=== PATIENT | female | born 1985 | race Caucasian/White ===

== ENCOUNTER 2019-08-15 08:42 | Emergency (ER) | payer OTHER, SELFPAY ==
[2019-08-15 08:56] VITALS: BP 152/94; PULSE 111; RESP 16; TEMP 38.6; O2SAT 98
--- NOTE | 2019-08-15 09:03 | ED.URI ---
HPI - URI/Sore Throat General Chief Complaint: Upper Respiratory Infection Stated Complaint: Body Aches/Cough/Mucus Time Seen by Provider: 08/15/19 09:07 Source: patient and RN notes reviewed Mode of arrival: ambulatory Limitations: no limitations History of Present Illness HPI Narrative: 34-year-old female presents with concern for body aches, chest congestion, fever, nausea that started Wednesday night. Reports taking alternating Tylenol and Motrin with no relief of symptoms. MD elicited complaint: sore throat Related Data Home Medications Medication Instructions Recorded Confirmed fluoxetine 20 mg BID 08/15/19 08/15/19 norethindrone-e.estradiol-iron 1.5 tablet PO DAILY 08/15/19 08/15/19 [Blisovi Fe 1.5/30 (28)] omeprazole 40 PO DAILY 08/15/19 Allergies Allergy/AdvReac Type Severity Reaction Status Date / Time codeine Allergy Mild Nausea and Verified 09/27/18 08:19 Vomiting guaifenesin Allergy Mild Swelling Verified 09/27/18 08:29 acetaminophen Allergy Unknown Unknown Verified 08/15/19 09:04 clarithromycin Allergy Unknown Unknown Verified 08/15/19 09:04 hydrocodone Allergy Unknown Unknown Verified 08/15/19 09:04 levofloxacin Allergy Unknown Unknown Verified 08/15/19 09:04 Review of Systems Review of Systems: Narrative: CONSTITUTIONAL: Reports malaise, chills, sweats, fever. ENT: Denies rhinorrhea, congestion, sinus pain, otalgia. Reports sore throat. CARDIOVASCULAR: Denies chest pain, palpitations, or edema. RESPIRATORY: Reports cough, chest congestion. Denies dyspnea. GASTROINTESTINAL: Denies abdominal pain,vomiting, diarrhea. Reports nausea SKIN: Denies rash or itching. MUSCULOSKELETAL: Reports myalgia. NEUROLOGIC: Denies headache. All systems reviewed & are unremarkable except as noted in HPI and below PMFSH Social History Social History Gender identity (if verbalized by the patient): Female Comments At time of signature, agree with nursing past medical, surgical, social and family history. There is no relevant family history pertinent to the presenting complaint Exam Narrative: Exam Narrative: GENERAL: Well-appearing, well-nourished, and in no acute distress. HEAD: Normocephalic EYES: PERRLA, conjunctivae clear ENT: Nares clear, turbinates erythematous, no discharge. Mucous membranes moist. TM pearly luevano with dull light reflex bilaterally; no tragal tenderness. Oropharynx mildly erythematous without lesions. Tonsils not enlarged and without exudate, no drooling, no hoarseness, no trismus. NECK: Supple. No lymphadenopathy CHEST: Clear to auscultation, breath sounds equal. No wheezing, rhonchi, rales, or stridor. No respiratory distress, speaks in full sentences. HEART: Regular rate and rhythm. No murmur heard. Normal peripheral pulses. SKIN: Warm, dry, no rash. NEURO: Alert and oriented x3. PSYCH: Normal mood and affect Course Course Emergency Course: Patient is aware of diagnosis, understands and agrees to treatment plan. Anticipatory guidance given. Patient agrees to follow-up as directed and is aware of reasons to seek care at the emergency department. Portions of this record may have been created with voice recognition software Vital Signs Vital signs: Vital Signs Temperature 101.4 F H 08/15/19 08:56 Pulse Rate 111 H 08/15/19 08:56 Respiratory Rate 16 08/15/19 08:56 Blood Pressure 152/94 H 08/15/19 08:56 Pulse Oximetry 98 08/15/19 08:56 Temperature 101.4 F H 08/15/19 08:56 Pulse Rate 111 H 08/15/19 08:56 Respiratory Rate 16 08/15/19 08:56 Blood Pressure 152/94 H 08/15/19 08:56 Pulse Oximetry 98 08/15/19 08:56 Reviewed. Patient has been instructed to follow up with her primary care provider within the next week regarding her elevated blood pressure today. MDM - URI/Sore Throat MDM Narrative Medical decision making narrative: Differential diagnosis considered: Strep pharyngitis, allergic rhinitis, upper respiratory tract infection, sinusitis, rhinosinusitis
== END 2019-08-15 09:23 | disposition home or self-care (01) ==
PROVIDERS: Emergency Provider Nurse Practitioner; PCP Nurse Practitioner Family
DX: B34.9 Viral infection, unspecified (principal); J45.909 Unspecified asthma, uncomplicated; K21.9 Gastro-esophageal reflux disease without esophagitis; F41.9 Anxiety disorder, unspecified; F32.9 Major depressive disorder, single episode, unspecified; F42.9 Obsessive-compulsive disorder, unspecified
CPT/HCPCS: 87804; 99213; G0463

== ENCOUNTER 2021-04-25 15:37 | Emergency (ER) | payer OTHER, SELFPAY ==
--- NOTE | ~2021-04-25 | XR_ITS ---
EXAMINATION: XR chest 2V DATE: 04/25/2021 17:50 INDICATION: Left-sided pain TECHNIQUE: PA and lateral views of the chest are obtained. COMPARISON: None available FINDINGS: The lungs are free of acute opacities. There is no pleural effusion or pneumothorax. The ca rdiomediastinal silhouette is normal. There is mild thoracic spondylosis. IMPRESSION: 1. No acute cardiopulmonary abnormality. Reviewed, dictated and finalized at location A.
--- NOTE | ~2021-04-25 | CT_ITS ---
EXAMINATION: CT cervical spine wo con DATE: 04/25/2021 17:42 INDICATION: Left neck pain TECHNIQUE: Computed tomography (CT) of the cervical spine was performed without intravenous contrast. The dose-length product (DLP) was 549.26 mGy-cm. Automated exposure control and iterative reconstruc tion technique were employed. COMPARISON: None FINDINGS: There is straightening of the cervical spine which can be positional or due to muscular spa sm. There is no fracture, dislocation, or subluxation. The vertebral body heights and intervertebral disc spaces are normal. The odontoid is intact. The prevertebral soft tissues are normal. IMPRESSION: 1. No acute osseous abnormality. Reviewed, dictated and finalized at location A.
[2021-04-25 16:02] VITALS: BP 156/107; PULSE 96; RESP 16; TEMP 36.8; O2SAT 94
[2021-04-25] MEDS: IBUPROFEN 600 MG TABLET PO (18:01)
[2021-04-25] MEDS: diazePAM (*CRX) 5 MG TABLET PO (18:07)
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
== END 2021-04-25 18:56 | disposition home or self-care (01) ==
PROVIDERS: Emergency Provider General Practice; PCP Nurse Practitioner Family
DX: S16.1XXA Strain of muscle, fascia and tendon at neck level, initial encounter (principal); S29.012A Strain of muscle and tendon of back wall of thorax, initial encounter; E11.9 Type 2 diabetes mellitus without complications; V49.40XA Driver injured in collision with unspecified motor vehicles in traffic accident, initial encounter
CPT/HCPCS: 71046; 72125; 99284; A9270

== ENCOUNTER 2021-07-08 10:24 | Outpatient (CLI) | payer OTHER, SELFPAY ==
--- NOTE | 2021-07-08 11:00 | NEURO_ITS ---
Impression: # Complains of right forearm discomfort. # No Carpal Tunnel Syndrome or ulnar neuropathy. # Normal needle/EMG exam. # Clinical correlation recommended. Nerve Conduction Studies Anti Sensory Summary Table Stim Site NR Peak (ms) P-T Amp (?V) Site1 Site2 Delta-P (ms) Dist (cm) Lauri (m/s) Right Median Anti Sensory (2-3nd Digit) Wrist 2.9 73.4 Wrist 2-3nd Digit 2.9 14.0 48 Wrist 3.0 64.2 Wrist 2-3nd Digit 2.9 14.0 48 Right Radial Anti Sensory (Base 1st Digit) Wrist 2.0 13.6 Wrist Base 1st Digit 2.0 0.0 Right Ulnar Anti Sensory (5th Digit) Wrist 2.4 35.0 Wrist 5th Digit 2.4 14.0 58 Motor Summary Table Stim Site NR Onset (ms) O-P Amp (mV) Site1 Site2 Delta-0 (ms) Dist (cm) Lauri (m/s) Right Median Motor (Abd Poll Brev) Wrist 3.0 4.4 Elbow Wrist 4.9 27.0 55 Elbow 7.9 2.7 Right Ulnar Motor (Abd Dig Minimi) Wrist 2.7 5.8 A Elbow Wrist 4.5 29.0 64 A Elbow 7.2 6.5 F Wave Studies NR F-Lat (ms) L-R F-Lat (ms) Right Median (Mrkrs) (Abd Poll Brev) 27.23 Right Ulnar (Mrkrs) (Abd Dig Min) 27.89 EMG Side Muscle Nerve Root Ins Act Fibs Amp Dur Recrt Comment Right 1stDorInt Ulnar C8-T1 Nml Nml Nml Nml Nml Right Ext Indicis Radial (Post Int) C7-8 Nml Nml Nml Nml Nml Right Ext Digitorum Radial (Post Int) C7-8 Nml Nml Nml Nml Nml Right BrachioRad Radial C5-6 Nml Nml Nml Nml Nml Right PronatorTeres Median C6-7 Nml Nml Nml Nml Nml Right Abd Poll Brev Median C8-T1 Nml Nml Nml Nml Nml MTDD
== END 2021-07-08 10:25 | disposition home or self-care (01) ==
PROVIDERS: Visit Provider Physician Assistant Surgical
DX: G56.01 Carpal tunnel syndrome, right upper limb (principal)
CPT/HCPCS: 95886; 95909

== ENCOUNTER 2021-12-02 11:20 | Emergency (ER) | payer OTHER, SELFPAY ==
[2021-12-02] VITALS (23 sets, daily range): BP systolic 133–161; BP diastolic 70–134; PULSE 84–103; RESP 12–24; TEMP 36.4; O2SAT 91–100
--- NOTE | ~2021-12-02 | XR_ITS ---
EXAMINATION: XR chest 2V 12/02/2021 12:29 INDICATION: New onset of shortness of breath PROCEDURE: 2 view chest COMPARISON: No prior studies for comparison. FINDINGS: The lungs are clear. The cardiomediastinal silhouette is within normal limits. There are no pleural effusions. There is no pneumothorax suspected. IMPRESSION: 1: NO ACUTE CARDIOPULMONARY DISEASE. Reviewed, dictated and finalized at location A.
--- NOTE | ~2021-12-02 | XR_ITS ---
EXAMINATION: XR ribs RT 2V INDICATION: Right lower chest pain TECHNIQUE: 3 views of the right ribs were obtained. COMPARISON: Chest radiographs from today FINDINGS: No displaced rib fracture is identified. The visualized portions of the lungs are free of a cute opacities. IMPRESSION: 1. No acute cardiopulmonary abnormality or evidence of displaced rib fracture. Reviewed, dictated and finalized at location F.
--- NOTE | 2021-12-02 11:52 | ECG_ITS ---
Measurements Intervals [place] Rate: 101 P: 31 MI: 143 QRS: 55 QRSD: 91 T: 22 QT: 360 QTc: 469 Interpretive Statements SINUS TACHYCARDIA BORDERLINE ECG Electronically Signed On 12-02-2021 14:32:52 CDT by Vikash Johnson D.O.
[2021-12-02 12:07] LABS: Basophils Percent Auto 0.4 % (0.2-1.2); Eosinophils Absolute Auto 0.5 K/mm3 (0-0.3); Eosinophils Percent Auto 4.4 % (0-4.4); Hemoglobin 13.9 g/dL (12.0-15.0); Immature Granulocyte Absolute 0.06 K/mm3 (0.00-0.031); Immature Granulocyte Percent A 0.6 % (0-0.5); Lymphocytes Absolute Auto 3.25 K/mm3 (0.9-3.2); Lymphocytes Percent Auto 30.7 % (18.3-44.2); Mean Corpuscular HGB Conc 33.1 g/dl (32-36); Mean Corpuscular Volume 90.5 fl (80-100); Monocytes Absolute Auto 0.5 K/mm3 (0.1-0.6); Monocytes Percent Auto 4.9 % (2.6-8.5); Neutrophils Absolute Auto 6.2 K/mm3 (1.3-6.7); Platelet Count Result 307 k/mm3 (150-375); Red Blood Count 4.64 M/mm3 (4.2-5.4); Red Cell Distribution Width 13.3 % (11.5-14.5); White Blood Count 10.6 K/mm3 (4.5-10.0)
[2021-12-02 12:20] LABS: Alanine Aminotransferase 25 U/L (6-35); Albumin Level 4.1 g/dL (3.5-5.1); Alkaline Phosphatase 78 U/L (38-126); Anion Gap 7 mmol/L (8-16); Aspartate Amino Transferase 25 U/L (14-36); Bilirubin,Total 0.3 mg/dL (0.2-1.3); Blood Urea Nitrogen 11 mg/dL (7-17); Calcium 8.4 mg/dL (8.4-10.2); Carbon Dioxide 23 mmol/L (22-30); Chloride 105 mmol/L (98-107); Estimated CRCL calculation 155 ml/min; Estimated Glomerular Filt Rate > 60; Glucose 144 mg/dL (65-110); Potassium 4.2 mmol/L (3.4-5.0); Sodium 135 mmol/L (137-145)
--- NOTE | 2021-12-02 13:08 | ED.SOB ---
HPI - SOB/Dyspnea General Chief Complaint: Shortness of Breath/Dyspnea Stated Complaint: right flank pain Time Seen by Provider: 12/02/21 13:08 Source: patient and RN notes reviewed Mode of arrival: ambulatory Limitations: no limitations History of Present Illness HPI Narrative: Patient is 36 years old white female, morbidly obese, presents with pain at the right mid and lower chest posteriorly after choking on watermelon 4 days ago. Patient reports got up in the middle of the night and to start eating watermelon, choked, vomited once associated with severe pain at the right mid and lower chest posteriorly. Patient has been coughing since. Patient denies any fever, chills, nausea, abdominal pain. Last menstrual period 2 weeks ago, patient is vaping, denies alcohol or drug use Related Data Allergies Allergy/AdvReac Type Severity Reaction Status Date / Time clarithromycin [From Biaxin] Allergy Swelling Verified 12/02/21 13:54 acetaminophen [From Vicodin] AdvReac Vomiting Verified 12/02/21 13:54 codeine AdvReac Vomiting Verified 12/02/21 13:54 hydrocodone [From Vicodin] AdvReac Vomiting Verified 12/02/21 13:54 levofloxacin [From Levaquin] AdvReac Vomiting Verified 12/02/21 13:54 Review of Systems Review of Systems: All systems reviewed & are unremarkable except as noted in HPI and below Exam Narrative: General appearance: Well-developed, well-nourished Skin: Normal color Head: Normocephalic, nontraumatic Eyes: Clear conjunctiva ENT: Oropharynx normal, ears normal, nose normal Neck: Supple, nontender Chest and respiratory: Airway patent, no respiratory distress, no accessory muscle use, taking deep breaths trigger coughing, severe tenderness right lower ribs posteriorly, no rash, no swelling or mass Heart: Regular rate/rhythm Abdomen: Soft, nontender, no organomegaly, quiet bowel sounds Vascular: Normal peripheral pulses, normal capillary refill. Musculoskeletal: Normal range of motion, nontender back Neurologic: Alert and oriented ?3, TABLE COVER FOLDER is normal as tested, no gross motor deficit Course Vital Signs Vital signs: Vital Signs Temperature 36.4 C L 12/02/21 11:48 Pulse Rate 103 H 12/02/21 11:48 Respiratory Rate 16 12/02/21 11:48 Blood Pressure 146/104 H 12/02/21 11:48 Pulse Oximetry 100 12/02/21 11:48 Oxygen Delivery Room Air 12/02/21 11:48 Temperature 36.4 C L 12/02/21 11:48 Pulse Rate 86 12/02/21 16:15 Respiratory Rate 17 12/02/21 16:15 Blood Pressure 133/92 H 12/02/21 15:31 Pulse Oximetry 96 12/02/21 16:15 Oxygen Delivery Room Air 12/02/21 11:48 MDM - SOB/Dyspnea Differential Diagnosis Differential diagnosis: Likely pulmonary embolism and other (Aspiration pneumonia, musculoskeletal pain, rib fracture) Lab Data Result diagrams: 12/02/21 11:59 12/02/21 11:59 Labs: Lab Results 12/02/21 12/02/21 12/02/21 Range/Units 11:59 11:59 13:47 WBC 10.6 H (4.5-10.0) K/mm3 RBC 4.64 (4.2-5.4) M/mm3 Hgb 13.9 (12.0-15.0) g/dL Hct 42.0 (37.0-47.0) % MCV 90.5 (80-100) fl MCH 30.0 (26-34) pg MCHC 33.1 (32-36) g/dl RDW 13.3 (11.5-14.5) % Plt Count 307 (150-375) k/mm3 MPV 9.0 (7.4-10.4) fl Immature Gran % (Auto) 0.6 H (0-0.5) % Neut % (Auto) 59.0 (45.5-73.1) % Lymph % (Auto) 30.7 (18.3-44.2) % Armstrong % (Auto) 4.9 (2.6-8.5) % Eos % (Auto) 4.4 (0-4.4) % Baso % (Auto) 0.4 (0.2-1.2) % Lymph # (Auto) 3.25 H (0.9-3.2) K/mm3 Armstrong # (Auto) 0.5 (0.1-0.6) K/mm3 Eos # (Auto) 0.5 H (0-0.3) K/mm3 Baso # (Auto) 0.0 (0.0-0.1) K/mm3 Abs Immat Gran (auto) 0.06 H (0.00-0.031) K/mm3 Absolute
[2021-12-02 13:43] LABS: Alveolar/Arterial O2 Gradient 35.9 mmHg; Base Excess ABG 0.8 mEq/l (+/-2.0); Fractional Inspired Oxygen 21 %; HCO3 ABG 22.3 mEq/l (22.0-26.0); Oxygen Content ABG 19.4 %vol (16.0-22.0); Oxygen Saturation ABG 97.1 % (95.0-100.0); Oxyhemoglobin 96.1 % THb (90.0-100.0); PCO2 ABG 27.5 mmHg (35.0-45.0); PO2 ABG 80.9 mmHg (80.0-100.0); PO2 FiO2 Ratio Arterial Blood 3.85 %; Total Hemoglobin 14.3 g/dL (12.0-18.0)
[2021-12-02 13:44] LABS: Device ROOM AIR; Modified Allen's Test Pass; Site Drawn RIGHT RADIAL; pH ABG 7.526 (7.350-7.450)
[2021-12-02] MEDS: KETOROLAC 30 MG/ML VIAL (*BKC) IV PUSH (13:51)
[2021-12-02 15:08] LABS: D Dimer 0.32 ug/mL (<0.48)
== END 2021-12-02 16:51 | disposition home or self-care (01) ==
PROVIDERS: Emergency Medicine; Emergency Provider Emergency Medicine; PCP Nurse Practitioner Family
DX: M54.9 Dorsalgia, unspecified (principal)
CPT/HCPCS: 36415; 36600; 71046; 71100; 80053; 82805; 85025; 85380; 93005; 96374; 99284; J1885

== ENCOUNTER 2024-09-13 13:06 | Outpatient (CLI) | payer OTHER, SELFPAY ==
--- NOTE | 2024-09-13 13:45 | NEURO_ITS ---
Impression: # Complains of left upper extremity pain and weakness. ? # Normal Nerve Conduction Study. ? # No Carpal Tunnel Syndrome or ulnar neuropathy. ? # Normal needle/EMG exam. ? # Clinical correlation recommended. ?Nerve Conduction Studies Anti Sensory Summary Table ?Stim Site NR Peak (ms) P-T Amp (?V) Site1 Site2 Delta-P (ms) Dist (cm) Lauri (m/s) Left Median Anti Sensory (2-3nd Digit) Wrist ? 2.4 90.0 Wrist 2-3nd Digit 2.4 14.0 58 Wrist ? 2.5 65.6 Wrist 2-3nd Digit 2.4 14.0 58 Left Radial Anti Sensory (Base 1st Digit) Wrist ? 1.7 59.2 Wrist Base 1st Digit 1.7 0.0 Left Ulnar Anti Sensory (5th Digit) Wrist ? 2.2 58.7 Wrist 5th Digit 2.2 14.0 64 Motor Summary Table ?Stim Site NR Onset (ms) O-P Amp (mV) Site1 Site2 Delta-0 (ms) Dist (cm) Lauri (m/s) Left Median Motor (Abd Poll Brev) Wrist ? 2.9 6.8 Elbow Wrist 4.6 28.0 61 Elbow ? 7.5 7.2 Left Ulnar Motor (Abd Dig Minimi) Wrist ? 2.7 7.1 A Elbow Wrist 4.8 28.0 58 A Elbow ? 7.5 5.5 F Wave Studies ?NR F-Lat (ms) L-R F-Lat (ms) Left Median (Mrkrs) (Abd Poll Brev) ? 27.56 Left Ulnar (Mrkrs) (Abd Dig Min) ? 28.81 EMG ?Side Muscle Nerve Root Ins Act Fibs Amp Dur Recrt Comment Left 1stDorInt Ulnar C8-T1 Nml Nml Nml Nml Nml Left Ext Indicis Radial (Post Int) C7-8 Nml Nml Nml Nml Nml Left Ext Digitorum Radial (Post Int) C7-8 Nml Nml Nml Nml Nml Left BrachioRad Radial C5-6 Nml Nml Nml Nml Nml Left PronatorTeres Median C6-7 Nml Nml Nml Nml Nml Left Abd Poll Brev Median C8-T1 Nml Nml Nml Nml Nml Left ABD Dig Min Ulnar C8-T1 Nml Nml Nml Nml Nml MTDD
--- OUTSIDE RECORDS SUMMARY | 2024-09-13 14:31 | XMS_ITS | Referral Summary ---
Author Organization 4 [facility] Address [address] [place] [id number] Care Team Providers Care Mid Level Practitioner Name Role Phone Maira Navarrete NP Primary Care Provider [phone] Allergies Active Allergy Reactions Criticality Noted Date Comments Aripiprazole Dizziness,Vomiting Low 05/12/2024 Atorvastatin Other (See comments) Low 05/12/2024 Body aches Buspirone Dizziness,Vomiting Low 05/12/2024 Clarithromycin Nausea And Vomiting 06/17/2017 Codeine Nausea And Vomiting Medium 10/08/2021 Duloxetine Dizziness,Vomiting Low 05/12/2024 Levofloxacin Nausea And Vomiting,Vomiting Low 06/17/2017 Lisinopril Rash Medium 05/12/2024 Naproxen Other (See comments) Low 05/12/2024 Bloody stool Sulfamethoxazole-Trimethop rim Rash Medium 10/20/2019 Bupropion Dizziness,Vomiting Low 05/12/2024 Medications azelastine (ASTELIN) 137 mcg (0.1 %) nasal spray USE 1 SPRAY(S) IN EACH NOSTRIL EVERY 12 HOURS 3 Active ergocalciferol (VITAMIN D) 50,000 unit capsule Take 1 capsule (50,000 Units total) by mouth once a week 2 Active ferrous sulfate 325 mg (65 mg of elemental iron) tablet Take 1 tablet (325 mg total) by mouth daily 2 Active FLUoxetine (PROzac) 40 mg capsule 3 Active FLUoxetine (PROzac) 20 mg capsule Take 3 capsules (60 mg total) by mouth daily 2 Active hydroCHLOROthia zide (HYDRODIURIL) 25 mg tablet Take 1 tablet (25 mg total) by mouth daily 2 Active metFORMIN XR (GLUCOPHAGE XR) 500 mg 24 hr tablet Take 1 tablet (500 mg total) by mouth 3 (three) times a day 2 Active montelukast (SINGULAIR) 10 mg tablet Take 1 tablet (10 mg total) by mouth daily 2 Active omeprazole (PriLOSEC) 40 mg capsule Take 1 capsule (40 mg total) by mouth daily 2 Active ondansetron (ZOFRAN) 4 mg tablet Take 1 tablet (4 mg total) by mouth every 8 (eight) hours as needed Active rosuvastatin (CRESTOR) 10 mg tablet Take 1 tablet (10 mg total) by mouth nightly Active traZODone (DESYREL) 100 mg tablet 3 Active albuterol 2.5 mg /3 mL (0.083 %) nebulizer solution USE 1 VIAL IN NEBULIZER THREE TIMES DAILY NEEDED Active albuterol HFA (PROVENTIL HFA,VENTOLIN HFA,PROAIR HFA) 90 mcg/actuation inhaler Inhale 2 puffs Activ e ALPRAZolam (XANAX) 0.5 mg tablet Take by mouth daily as needed Active cyclobenzaprine (FLEXERIL) 10 mg tablet 4 Active fluticasone propionate (FLONASE) 50 mcg/actuation nasal spray USE 2 SPRAY(S) IN EACH NOSTRIL ONCE DAILY Active hydrOXYzine (VISTARIL) 25 mg capsule TAKE 1 CAPSULE BY MOUTH THREE TIMES DAILY NEEDED 4 Active meclizine (ANTIVERT) 25 mg tablet Take 1 tablet 3 times a day by oral route as needed. Active Vlad Fe 1.5/30, 28, 1.5 mg-30 mcg (21)/75 mg (7) per tablet 4 Active valACYclovir (VALTREX) 1 gram tablet Take 1 PO TID x 7 days; extra pills for subsequent outbreaks Active losartan (COZAAR) 100 mg tablet TAKE 1/2 (ONE-HALF) TABLET BY MOUTH TWICE DAILY 4 Active gabapentin (NEURONTIN) 100 mg capsuleIndicati ons:Facial pain Take 1 capsule (100 mg total) by mouth 3 (three) times a day 90 capsule 3 4 Active Active Problems Problem Noted Date Diagnosed Date Ptosis of left eyelid 05/12/2024 Facial pain 05/12/2024 Iron deficiency 03/11/2023 Social History Tobacco Use Types Packs/Day Years Used Date Smoking Tobacco: Never Tobacco Cessation:Counseling Given: Not Answered Comments Unknown Sex and Gender Information Value Date Recorded Sex Assigned at Not on file Legal Sex Female 8:51 AM CDT Gender Identity Not on file Sexual Orientation Not on file Last Filed Vital Signs Vital Sign Reading Time Taken Comments Blood Pressure 134/88 05/12/2024 12:58 PM BOX LIDDER Pulse 110 05/12/2024 12:58 PM BOX LIDDER Temperature 36.6 C (97.9 F) 03/11/2023 2:54 PM CDT Respiratory Rate 20 03/11/2023 2:54 PM CDT Oxygen Saturation 97% 05/12/2024 12: 58 PM BOX LIDDER Inhaled Oxygen Concentration - - Weight 117.2 kg (258 lb 6.4 oz) 024 12:58 PM BOX LIDDER Height 167 cm (5' 5.75 ) 05/12/2024 12: 58 PM BOX LIDDER Body Mass Index 42.03 05/12/2024 12:58 PM BOX LIDDER Plan of Treatment Not on file Insurance [facility] Care Teams Mid Level Practitioner Relationship Specialty Start Date End Date Maira Navarrete NP PCP - General Nurse Practitioner 01/19/23
--- OUTSIDE RECORDS SUMMARY | 2024-09-13 14:31 | XMS_ITS | Clinical Summary ---
Author Organization 4 [facility] Address [address] [place] [id number] Care Team Providers Care Energy Specialist Name Role Phone Maira Navarrete NP Primary Care Provider [phone] Allergies Active Allergy Reactions Criticality Noted Date [...] 05/12/2024 Facial pain 05/12/2024 Iron deficiency 03/11/2023 Surgical History Surgery Date Site/Laterality Comments COLONOSCOPY Medical History Medical History Date Comments Diabetes mellitus (HCC) Social History Tobacco Use Types Packs/Day Years Used Date Smoking Tobacco: Never Tobacco Cessation:Counseling Given: Not Answered Comments Unknown Sex and Gender Information Value Date Recorded Sex Assigned at Not on file Legal Sex Female 8:51 AM CDT Gender Identity Not on file Sexual Orientation Not on file Obstetrics History Last Filed Vital Signs Vital Sign Reading Time Taken Comments Blood Pressure 134/88 05/12/2024 12:58 PM BUSINESS SYSTEMS CONSULTANT Pulse 110 05/12/2024 12:58 PM BUSINESS SYSTEMS CONSULTANT Temperature 36.6 C (97.9 F) 03/11/2023 2:54 PM CDT Respiratory Rate 20 03/11/2023 2:54 PM CDT Oxygen Saturation 97% 05/12/2024 12: 58 PM BUSINESS SYSTEMS CONSULTANT Inhaled Oxygen Concentration - - Weight 117.2 kg (258 lb 6.4 oz) 024 12:58 PM BUSINESS SYSTEMS CONSULTANT Height 167 cm (5' 5.75 ) 05/12/2024 12: 58 PM BUSINESS SYSTEMS CONSULTANT Body Mass Index 42.03 05/12/2024 12:58 PM BUSINESS SYSTEMS CONSULTANT Plan of Treatment Health Maintenance Due Date Last Done Comments Cervical Cancer Screening 1985 Depression Screening 1985 Hepatitis C Screening 1985 DTaP/Tdap/Td Vaccine (1 - Tdap) 02/12/1996 Varicella Vaccines (1 of 2 - 13+ 2-dose series) 1998 Hepatitis B Screening 2003 Regular Well Visit/Exam 18-64 2003 Pneumococcal vaccine <65 (1 of 2 - PCV) 02/12/2004 Covid-19 Vaccine (3 - 2023-2 5 season) 2024 04/12/2021, 03/15/2021 Influenza Vaccine (#1) 2024 HPV Vaccines Aged Out No longer eligi ble based on patient's age to complete this topic Insurance [facility] Care Teams Energy Specialist Relationship Specialty Start Date End Date Maira Navarrete NP PCP - General Nurse Practitioner 01/19/23
--- OUTSIDE RECORDS SUMMARY | 2024-09-13 14:31 | XMS_ITS | CONTINUITY OF CARE DOCUMENT ---
Author Name charissa carrington Address Unknown Organization [facility] Address [address] [address] [place] [address] Phone [phone] Care Team Providers Care Patient Services Technician Name Role Phone Emanuel Bellamy MD Unavailable [phone] Emanuel Bellamy MD Unavailable INSURANCE PROVIDERS Payer name Policy type / Coverage type Sarika red green party ID [place] [employer] Medicaid [id number]
--- OUTSIDE RECORDS SUMMARY | 2024-09-13 14:32 | XMS_ITS | Data Portability ---
Author Organization [place] [facility] [employer], Main Office Address [address] [place] [address] Care Team Providers Care Backshoe Person Name Role Phone SHAYY RANDOLPH Primary Care Provider HOPSHAYY HUSTON Referring Provider [phone] Assessment No assessment recorded. Plan of Treatment Reminders Order Date Submit Date Provider Last Modified By Organization Details Last Modified Time Details Appointments Follow Up 30 2024 02:00P Brea Hayes NP Not available Not available Not available Lab LIZETTE (antinucl ear antibodie s) screen, ifa, serum [address] (Lab), [address] [place], [address], 06/21/2024 16:11:28 rf (rheumato id factor), serum [address] (Lab), [address] [place], [address], 06/21/2024 16:12:03 ESR (erythroc yte sedimenta tion rate), blood [address] (Lab), [address] [place], [address], 06/21/2024 16:12:32 drug of abuse panel, urine 2023 024 [facility] (Lab), [address] [place], [address], 04/20/2024 20:05:38 CBC w/ auto diff 2023 024 [facility] (Lab), [address] [place], [address], 01/27/2024 20:54:54 CBC w/ auto diff 2023 024 [facility] (Lab), [address] [place], [address], 01/27/2024 18:59:34 glycohemo globin, total, blood 2023 024 [facility] (Lab), [address] [place], [address], 01/27/2024 20:06:12 CMP, serum or plasma 2023 024 [facility] (Lab), [address] [place], [address], 01/27/2024 18:59:36 microalbu min, urine 2023 024 [facility] (Lab), [address] [place], [address], 01/27/2024 19:06:44 lipid panel, serum 2023 024 [facility] (Lab), [address] [place], [address], 01/27/2024 18:59:39 Referral None recorded. Procedures None recorded. Surgeries None recorded. Imaging nerve conductio n study - Please call pt to schedule left upper EMG 2023 024 [facility] (Cardiology & Emg), [address], [address], 09/04/2024 08:59:05 XR, knee, 3 view - Please contact pt to schedule 2023 024 [email or web address] 56 [facility] (One Call Scheduling), [address] [place], [address], 05/22/2024 09:44:26 MRI, brain, w/wo contrast - Please call pt to schedule 2023 [facility] (One Call Scheduling), [address] [place], [address], 05/01/2024 14:10:25 MRI, head, w/wo contrast - Marcel says same test already approved. 2023 [email or web address] 56 [facility] (One Call Scheduling), [address] [place], [address], 04/26/2024 08:49:21 Medication Orders metformin 500 mg tablet 2023 [facility], [address] [place] [address], [address], 06/21/2024 16:01:57 rosuvasta tin 10 mg tablet 2023 024 [facility], [address] [place] [address], [address], 06/21/2024 16:01:58 alprazola m 0.5 mg tablet 2023 [facility], [address] [place] [address], [address], 06/21/2024 16:02:00 cyclobenz aprine 10 mg tablet 2023 024 [facility], [address] [place] [address], [address], 04/20/2024 15:58:09 gabapenti n 100 mg capsule 2023 024 [facility], [address] [place] [address], [address], 04/20/2024 15:58:09 Zithromax Z-Lucius 250 mg tablet 2023 [facility], [address] [place] [address], [address], 04/20/2024 15:58:06 fluoxetin e 40 mg capsule 2023 [facility], [address] [place] [address], [address], 04/20/2024 15:58:06 alprazola m 0.5 mg tablet [address] [facility], [address] [place] [address], [address], 04/20/2024 15:58:12 rosuvasta tin 10 mg tablet [address] [facility] [address], [address] [place] [address], [address], 04/20/2024 15:58:08 ondansetr on HCl 4 mg tablet [address] [facility] [address], [address] [place] [address], [address], 04/20/2024 15:58:08 Diflucan 150 mg tablet 2023 [facility], [address] [place] [address], [address], 04/20/2024 16:09:30 omeprazol e 40 mg capsule,d elayed release [address] [facility], [address] [place] [address], [address], 04/20/2024 15:58:06 amoxicill in 875 mg-potass ium clavulana te 125 mg tablet 2023 [email or web address] 77 [facility] 361, [address] [place] [address] [place], [address], 04/20/2024 14:59:43 fluticaso ne propionat e 50 mcg/actua tion nasal spray,raquel pension 2023 024 [email or web address] 77 [facility], [address] [place], [address], 04/20/2024 15:00:34 Patient TargetsNo targets recorded. Patient InstructionsNo instructions recorded. Reason for Referral None Reported. Results Created Date Observation Date Name Description Value Unit Range Abnormal Flag Note LastModifiedBy Organization Detail LastModifiedTime 01/27/2001/27/2024 CBC/C OMPLE TE BLD COUNT W/DIF F white blood cells 10.4 x10'3 /uL 4.2-10 .8 Not Available [facility] (Lab) [address] [place], [address], 01/27/2024 18:59:34 01/27/20 24 01/27/2024 CBC/C OMPLE TE BLD COUNT W/DIF F red blood cells 4.58 x10'6 /uL 3.80-5 .20 Not Available [facility] (Lab) [address] [place], [address], 01/27/2024 18:59:34 01/27/20 24 01/27/2024 CBC/C OMPLE TE BLD COUNT W/DIF F hemoglobin 13.5 g/dL 12.0-1 5.6 Not Available [facility] (Lab) [address] [place], [address], 01/27/2024 18:59:34 01/27/20 24 01/27/2024 CBC/C OMPLE TE BLD COUNT W/DIF F hematocrit 41.8 % 35.7-4 5.7 Not Available [facility] (Lab) [address] [place], [address], 01/27/2024 18:59:34 01/27/20 24 01/27/2024 CBC/C OMPLE TE BLD COUNT W/DIF F mean red cell volume 91.3 fL 82.0-9 9.0 Not Available [facility] (Lab) [address] [place], [address], 01/27/2024 18:59:34 01/27/20 24 01/27/2024 CBC/C OMPLE TE BLD COUNT W/DIF F mean red cell hemoglobin 29.5 pg 27.0-3 3.0 Not Available [facility] (Lab) [address] [place], [address], 01/27/2024 18:59:34 01/27/20 24 01/27/2024 CBC/C OMPLE TE BLD COUNT W/DIF F mean RBC HGB concentratio n 32.3 g/dL 31.0-3 6.0 Not Available [facility] (Lab) [address] [place], [address], 01/27/2024 18:59:34 01/27/20 24 01/27/2024 CBC/C OMPLE TE BLD COUNT W/DIF F red cell distribution width 13.1 % 11.8-1 5.5 Not Available [facility] (Lab) [address] [place], [address], 01/27/2024 18:59:34 01/27/20 24 01/27/2024 CBC/C OMPLE TE BLD COUNT W/DIF F platelets 347 x10'3 /uL 150-40 0 Not Available [facility] (Lab) [address] [place], [address], 01/27/2024 18:59:34 01/27/20 24 01/27/2024 CBC/C OMPLE TE BLD COUNT W/DIF F mean platelet volume 9.5 fL 9.0-12 .4 Not Available [facility] (Lab) [address] [place], [address], 01/27/2024 18:59:34 01/27/20 24 01/27/2024 CBC/C OMPLE TE BLD COUNT W/DIF F neutrophils 64.5 % 39.0-7 2.0 Not Available [facility] (Lab) [address] [place], [address], 01/27/2024 18:59:34 01/27/20 24 01/27/2024 CBC/C OMPLE TE BLD COUNT W/DIF F lymphocytes 26.1 % 16.0-4 7.0 Not Available [facility] (Lab) [address] [place], [address], 01/27/2024 18:59:34 01/27/20 24 01/27/2024 CBC/C OMPLE TE BLD COUNT W/DIF F monocytes 4.9 % 5.0-12 .0 low Not Available [facility] (Lab) [address] [place], [address], 01/27/2024 18:59:34 01/27/20 24 01/27/2024 CBC/C OMPLE TE BLD COUNT W/DIF F eosinophils 3.6 % 1.0-7. 0 Not Available [facility] (Lab) [address] [place], [address], 01/27/2024 18:59:34 01/27/20 24 01/27/2024 CBC/C OMPLE TE BLD COUNT W/DIF F basophils 0.5 % 0.0-2. 0 Not Available [facility] (Lab) [address] [place], [address], 01/27/2024 18:59:34 01/27/20 24 01/27/2024 CBC/C OMPLE TE BLD COUNT W/DIF F immature granulocytes 0.4 % 0.00-0 .50 Not Available [facility] (Lab) [address] [place], [address], 01/27/2024 18:59:34 01/27/20 24 01/27/2024 CBC/C OMPLE TE BLD COUNT W/DIF F neutrophils, absolute count 6.73 x10'3 /uL 1.5-8. 0 Not Available [facility] (Lab) [address] [place], [address], 01/27/2024 18:59:34 01/27/20 24 01/27/2024 CBC/C OMPLE TE BLD COUNT W/DIF F lymphocytes, absolute count 2.72 x10'3 /uL 1.07-3 .43 Not Available [facility] (Lab) [address] [place], [address], 01/27/2024 18:59:34 01/27/20 24 01/27/2024 CBC/C OMPLE TE BLD COUNT W/DIF F monocytes, absolute count 0.51 x10'3 /uL 0.29-0 .99 Not Available [facility] (Lab) [address] [place], [address], 01/27/2024 18:59:34 01/27/20 24 01/27/2024 CBC/C OMPLE TE BLD COUNT W/DIF F eosinophils, absolute count 0.37 x10'3 /uL 0.02-0 .53 Not Available [facility] (Lab) [address] [place], [address], 01/27/2024 18:59:34 01/27/20 24 01/27/2024 CBC/C OMPLE TE BLD COUNT W/DIF F basophils, absolute count 0.05 x10'3 /uL 0.01-0 .08 Not Available [facility] (Lab) [address] [place], [address], 01/27/2024 18:59:34 01/27/20 24 01/27/2024 CBC/C OMPLE TE BLD COUNT W/DIF F immature granulocytes ,absolute 0.04 x10'3 /uL 0.00-0 .05 Not Available [facility] (Lab) [address] [place], [address], 01/27/2024 18:59:34 01/27/20 24 01/27/2024 CBC/C OMPLE TE BLD COUNT W/DIF F nucleated red blood cells 0.0 % -0 Not Available [facility] (Lab) [address] [place], [address], 01/27/2024 18:59:34 01/27/20 24 01/27/2024 CBC/C OMPLE TE BLD COUNT W/DIF F NRBC# 0.00 x10'3 /uL Not Available [facility] (Lab) [address] [place], [address], 01/27/2024 18:59:34 01/27/20 24 01/27/2024 COMPR EHENS ENRRIQUE METAB OLIC PANEL sodium 136 mmol/ L 137-14 5 low Not Available [facility] (Lab) [address] [place], [address], 01/27/2024 18:59:36 01/27/20 24 01/27/2024 COMPR EHENS ENRRIQUE METAB OLIC PANEL potassium 3.9 mmol/ L 3.5-5. 1 Not Available [facility] (Lab) [address] [place], [address], 01/27/2024 18:59:36 01/27/20 24 01/27/2024 COMPR EHENS ENRRIQUE METAB OLIC PANEL chloride 106 mmol/ L 98-107 Not Available [facility] (Lab) [address] [place], [address], 01/27/2024 18:59:36 01/27/20 24 01/27/2024 COMPR EHENS ENRRIQUE METAB OLIC PANEL carbon dioxide 24 mmol/ L 22-30 Not Available [facility] (Lab) [address] [place], [address], 01/27/2024 18:59:36 01/27/20 24 01/27/2024 COMPR EHENS ENRRIQUE METAB OLIC PANEL anion gap 9.9 mmol/ L 14-22 low Not Available [facility] (Lab) [address] [place], [address], 01/27/2024 18:59:36 01/27/20 24 01/27/2024 COMPR EHENS ENRRIQUE METAB OLIC PANEL glucose 103 mg/dL 70-99 high Not Available [facility] (Lab) [address] [place], [address], 01/27/2024 18:59:36 01/27/20 24 01/27/2024 COMPR EHENS ENRRIQUE METAB OLIC PANEL BUN 9 mg/dL 8-19 Not Available [facility] (Lab) [address] [place], [address], 01/27/2024 18:59:36 01/27/20 24 01/27/2024 COMPR EHENS ENRRIQUE METAB OLIC PANEL creatinine 0.61 mg/dL 0.66-1 .25 low Not Available [facility] (Lab) [address] [place], [address], 01/27/2024 18:59:36 01/27/20 24 01/27/2024 COMPR EHENS ENRRIQUE METAB OLIC PANEL GFR >60 Refer ence Range : [place] [facility] GFR Healt hy Adult : >60 mL/mi n/1.7 3 m2 Chron ic Kidne y Disea se: 15-60 mL/mi n/1.7 3 m2 Kidne y Failu re: <15/m L/min /1.73 m2 www.n iddk. nih.g ov The MDRD study equat ion has not been valid ated in child john <18 years of age; pregn ant women ; the elder ly >85 years of age; or in some racia l or ethni c subgr oups, such as Hispa nics. Outsi de the valid ated charlotte eters , estim ated GFR is less accur ate, requi ring clini any judgm ent on a case- by-ca se basis . Clini any inter preta tion for other races and ages must be made by the clini gia. The MDRD study equat ion has not been valid ated for the evalu ation of serum creat inine relat ed to nutri kristine l statu s or medic ation usage . For perso ns <18 years of age, a pedia tric GFR calcu lator is avail able on the [facility] websi te: https ://ww w.kid aubrey.o rg/pr ofess ional s/kdo qi/gf r_cal culat or Not Available [facility] (Lab) [address] [place], [address], 01/27/2024 18:59:36 01/27/20 24 01/27/2024 COMPR EHENS ENRRIQUE METAB OLIC PANEL alkaline phosphatase 88 U/L 38-126 Not Available [facility] (Lab) [address] [place], [address], 01/27/2024 18:59:36 01/27/20 24 01/27/2024 COMPR EHENS ENRRIQUE METAB OLIC PANEL alanine aminotransfe rase 25 U/L 0-35 Not Available [facility] (Lab) [address] [place], [address], 01/27/2024 18:59:36 01/27/20 24 01/27/2024 COMPR EHENS ENRRIQUE METAB OLIC PANEL aspartate aminotransfe rase 31 U/L 15-37 Not Available [facility] (Lab) [address] [place], [address], 01/27/2024 18:59:36 01/27/20 24 01/27/2024 COMPR EHENS ENRRIQUE METAB OLIC PANEL bilirubin, total 0.50 mg/dL 0.20-1 .30 Not Available [facility] (Lab) [address] [place], [address], 01/27/2024 18:59:36 01/27/20 24 01/27/2024 COMPR EHENS ENRRIQUE METAB OLIC PANEL calcium 8.7 mg/dL 8.4-10 .2 Not Available [facility] (Lab) [address] [place], [address], 01/27/2024 18:59:36 01/27/20 24 01/27/2024 COMPR EHENS ENRRIQUE METAB OLIC PANEL total protein 7.5 g/dL 6.3-8. 2 Not Available [facility] (Lab) [address] [place], [address], 01/27/2024 18:59:36 01/27/20 24 01/27/2024 COMPR EHENS ENRRIQUE METAB OLIC PANEL albumin 4.5 g/dL 3.4-5. 0 Not Available [facility] (Lab) [address] [place], [address], 01/27/2024 18:59:36 01/27/20 24 01/27/2024 COMPR EHENS ENRRIQUE METAB OLIC PANEL globulin 3.0 g/dL 2.6-4. 2 Not Available [facility] (Lab) [address] [place], [address], 01/27/2024 18:59:36 01/27/20 24 01/27/2024 COMPR EHENS ENRRIQUE METAB OLIC PANEL A/G ratio 1.5 ratio 1.0-2. 0 Not Available [facility] (Lab) [address] [place], [address], 01/27/2024 18:59:36 01/27/20 24 01/27/2024 LIPID PANEL cholesterol 120 mg/dL 140-19 9 low NIH BETSY NSUS RECOM MENDA TION FOR REE STERO L: ADULT CHILD LOW RISK: <200 <170 BORDE RLINE : <200- 239 ----- HIGH RISK: >240 >200 Not Available [facility] (Lab) [address] [place], [address], 01/27/2024 18:59:39 01/27/20 24 01/27/2024 LIPID PANEL triglyceride s 133 mg/dL 0-150 NIH BETSY NSUS REPOR T RECOM MENDA TION FOR TRIGL YCERI RYAN: ADULT CHILD LOW RISK: <150 ----- BODER LINE: 150-1 99 ----- HIGH RISK: >200 ----- Not Available [facility] (Lab) [address] [place], [address], 01/27/2024 18:59:39 01/27/20 24 01/27/2024 LIPID PANEL HDL cholesterol 44 mg/dL 40- Not Available [facility] (Lab) [address] [place], [address], 01/27/2024 18:59:39 01/27/20 24 01/27/2024 LIPID PANEL LDL cholesterol, calculated 49 mg/dL 0-130 NIH BETSY NSUS REPOR T RECOM MENDA TIONS FOR LDL: ADULT CHILD LOW RISK <130 <110 (OPTI MAL LDL) <100 ----- BORDE RLINE : 130-1 59 ----- HIGH RISK: >160 >130 A TRIGL YCERI DE RESUL T >400 INVAL IDATE S THE CALCU LATIO N FOR LDL FRACT IONAT ION - THE LDL RESUL T WILL NOT BE REPOR GIA. Not Available [facility] (Lab) [address] [place], [address], 01/27/2024 18:59:39 01/27/20 24 01/27/2024 MICRO ALBUM IN RANDO M URINE microalbumin , urine <6.0 mg/L 0.0-16 .6 Not Available [facility] (Lab) [address] [place], [address], 01/27/2024 19:06:44 01/27/20 24 01/27/2024 HEMOG LOBIN A1C HA1C 6.6 % 4.0-6. 0 high Diabe germain Scree obed Crite bennett: <5.7% Consi stent with absen ce of diabe germain 5.7-6 .4% Consi stent with incre ased risk for diabe germain (pred iabet es) >OR=6 .5% Consi stent with diabe germain REFER ENCE: Diabe germain Care 2016, 39(Vera ppl.1 ):s13 -s22 Not Available [facility] (Lab) [address] [place], [address], 01/27/2024 20:06:12 05/01/20 24 04/27/2024 MRI, brain , w/wo contr ast No observ ation record ed. [email or web address] [facility] [address] [place], [address], 05/01/2024 14:14:28 Result Notes None recorded. Problems Name Problem SNOMED Code Status Onset Date Resolution Date Notes Provider Name and Address Organization Details Recorded Time Hyperlipi demia 16908814 Active 2022 Not Available [employer] 3 16:32:34 Iron deficienc y 44329894 Active 2022 Not Available [facility] 3 16:32:34 Obesity 558125858 Active 2022 Not Available [employer] 3 16:32:34 Nausea 083716111 Active 2022 Not Available [facility] 3 16:32:34 Anxiety 27290555 Active 2022 Not Available [facility] 3 16:32:34 Fatigue 29661793 Active 2022 Not Available [facility] 3 16:32:34 Multiple joint pain 01614696 Active 2022 Not Available [facility] 3 16:32:34 Diabetes mellitus 36380153 Active 2022 Not Available [facility] 3 16:32:34 Deviated nasal septum 443240392 Active 2022 Not Available [facility] 3 16:32:33 Allergic rhinitis 62998416 Active 2022 [facility] Available [facility] 3 16:32:34 Essential hypertens ion 48421437 Active 2022 Not Available [employer] 3 16:32:34 Hyperprot einemia 56620572 Active 2022 Not Available [facility] 3 16:32:34 Liver enzymes level above reference range 881504719 Active 2022 Not Available [facility] 3 16:32:34 Asthma 028625334 Active Not Available [facility] 3 16:32:34 Bronchiti s 35921959 Active 2017 Not Available [facility] 3 16:32:34 Vitamin D deficienc y 93404932 Active 2021 Not Available [facility] 3 16:32:34 Foot pain 51370566 Completed Not Available [facility] 3 03:16:54 Pain in wrist 16333169 Completed Not Available [facility] 3 03:16:54 Candidias is 90855917 Completed Not Available [facility] 3 03:16:54 Iron deficienc y anemia 86270683 Active 2021 Not Available [facility] 3 16:32:34 Benign essential hypertens ion 4827311 Active 2023 Jaxson Barrera MD [address], [place], [address] , [facility] [employer] [facility] 4 15:01:30 Anxiety state 702135844 Active 2023 Jaxson Barrera MD [address], [place], [address] , [employer] [facility] [employer] [facility] [facility] 4 15:01:31 Steatosis of liver 003278291 Active 2023 Jaxson Barrera MD [address], [place], [address] , [facility] [employer] [facility] 4 15:02:09 Seasonal allergy 949091386 Active 2023 Sharda Live LPN null, [place] [facility] 4 15:37:18 Acute bronchiti s 18484813 Active 2023 SAMMIE Palmer null, [place] [facility] 4 12:45:53 Type 2 diabetes mellitus without complicat ion 114114500 Active 2023 Sharda Live LPN null, [place] [facility] 4 14:16:08 Migraine 39746624 Active 2023 Sharda Live LPN null, [place] [facility] 4 15:41:14 Paronychi a of toe 536029424 Active 2023 Jaxson Barrera MD [address], [place], [address] , [facility] 4 16:40:50 Eye symptom 950959809 Active 2023 Jaxson Barrera MD [address], [place], [address] , [facility] 4 16:41:10 Candidias is of vagina 15864251 Active 2023 Courtney Ott MA null, [place] [facility] 4 11:20:02 COVID-19 777937793 Active 2023 SAMMIE Palmer null, [place] [facility] 4 17:14:29 Cough 74948079 Active 2023 Mallorie lance RMA null, [place] [facility] 4 17:17:13 Left hemipares is 966404436 Active 2023 DELFINO Alexis [address], [place], [address] , [facility] 4 15:14:02 Pain of left knee joint 95585446371 4107 Active 2023 DELFINO Alexis [address], [place], [address] , [employer] 4 15:15:34 Trigemina l neuralgia 71043435 Active 2023 DELFINO Alexis [address], [place], [address] , [employer] 4 15:22:23 Acute sinusitis 65180561 Active 2023 DELFINO Alexis [address], [place], [address] , [employer] 4 15:36:22 Gastroeso phageal reflux disease without esophagit is 110083833 Active 2023 DELFINO Alexis [address], [place], [address] , [employer] 4 23:35:55 Vertigo 829680769 Active 2023 DELFINO Alexis [address], [place], [address] , [employer] 4 09:51:19 Hyponatre july 87431570 Active 2023 DELFINO Alexis [address], [place], [address] , [employer] 4 16:06:28 Herpes zoster 6315857 Active 2023 DELFINO Alexis [address], [place], [address] , [employer] 4 09:48:54 Acute upper respirato ry infection 26671322 Active 2023 DELFINO Alexis [address], [place], [address] , [employer] 4 08:38:23 Problem Notes None recorded. Procedures Surgical History Date Name Laterality Status Provider Name and Address Organization Details Recorded Time 6 tooth extraction completed Not Available [facility] 09/02/2022 03:04:38 Imaging Results Imaging Date Name Status LastModified by Organiz ation Details LastModified Time 04/27/2024 MRI, brain, w/wo contrast completed [email or web address] [facility] [address], [place], [address], 05/01/2024 14:14:28 Procedure Notes None recorded. Medical Equipment None Reported. Allergies Allergen ID Allergen Name Allergen Category Reaction Reaction Severity Criticality Documentation Date Start Date Code Code System Note Provider Name and Address Organization Details Recorded Time 6098 acetamino phen / hydrocodo ne medicatio n Not available Not available Not available 09/02/2022 50927 2 RxNorm Not Available [facility] 3 03:33:22 6099 Levaquin medicatio n Not available Not available Not available 09/02/2022 75148 2 RxNorm Not Available [facility] 3 03:33:22 6100 codeine medicatio n nausea moderate Not available 09/02/2022 2670 RxNorm aller gic to even cough syrup with héctor n Not Available [facility] 3 03:33:22 6101 Biaxin medicatio n Not available Not available Not available 09/02/2022 08516 9 RxNorm Not Available [facility] 3 03:33:22 6102 Bactrim medicatio n rash Not available Not available 09/02/20222019 33749 9 RxNorm Not Available [facility] 3 03:33:22 6103 acetamino phen / dextromet horphan / guaifenes in / phenyleph rine medicatio n Not available Not available Not available 09/02/2022 18126 6 RxNorm Not Available [facility] 3 03:33:22 6104 atorvasta tin medicatio n myalgias (muscle pain) Not available Not available 09/02/2022 37583 RxNorm not an aller gy Not Available [facility] 3 03:33:23 Medications Name Sig Start Date Stop Date Status Note LastModified by Organization Details LastModified Time losartan 50 mg tablet TAKE 1 TABLET BY MOUTH TWICE DAILY active Not Available Not Available No t Available quetiapin e 25 mg tablet 04/15 completed Not Available Not Available Not Available fluoxetin e 40 mg capsule TAKE TWO CAPSULES BY MOUTH ONCE DAILY active Not Available Not Available No t Available cyclobenz aprine 10 mg tablet TAKE ONE TABLET BY MOUTH AT BEDTIME active Not Available Not Available No t Available amoxicill in 500 mg capsule Take 1 capsule 3 times a day by oral route for 10 days. active Not Available Not Available No t Available buspirone 5 mg tablet Take 1 tablet twice a day by oral route. active Not Available Not Available No t Available metformin 500 mg tablet Take 1 tablet every day by oral route. active Not Available Not Available No t Available nystatin 100,000 unit/mL oral suspensio n Take 5 mL 4 times a day by oral route. active Not Available Not Available No t Available prednison e 10 mg tablet 30mg x 2 days, 20mg x 2 days, 10mg x 2 days 06/16 completed Not Available Not Available Not Available doxycycli ne hyclate 100 mg capsule Take 1 capsule every day by oral route for 90 days. 01/19 completed Not Available Not Available Not Available albuterol sulfate 2.5 mg/3 mL (0.083 %) solution for nebulizat ion USE 1 VIAL IN NEBULIZE R THREE TIMES DAILY NEEDED active Not Available Not Available No t Available trazodone 50 mg tablet Take 1 tablet every day by oral route as needed. 07/14 completed Not Available Not Available Not Available atorvasta tin 10 mg tablet TAKE 1 TABLET BY MOUTH ONCE DAILY active Not Available Not Available No t Available azithromy obie 250 mg tablet Take 1 dose pk by oral route. active Not Available Not Available No t Available ofloxacin 0.3 % eye drops INSTILL 1 GTT INTO OD QID active Not Available Not Available No t Available fluconazo le 150 mg tablet Take 1 tablet by mouth at onset of symptoms , may repeat in 3 days if needed. active Not Available Not Available No t Available benzonata te 200 mg capsule Take 1 capsule 3 times a day by oral route as needed. active Not Available Not Available No t Available valacyclo vir 1 gram tablet Take 1 PO TID x 7 days; extra pills for subseque nt outbreak s active Not Available Not Available No t Available ondansetr on HCl 4 mg tablet Take 1 tablet every 8 hours by oral route as needed. active Not Available Not Available No t Available prednison e 20 mg tablet Take 2 tablets every day in AM by oral route for 5 days. active Not Available Not Available No t Available fluoxetin e 10 mg tablet active Not Available Not Available Not Available prednison e 5 mg tablet TAKE 6 TABLETS BY MOUTH ONCE DAILY FOR 2 DAYS AND THEN 4 ONCE DAILY FOR 2 DAYS AND THEN 2 ONCE DAILY FOR 2 DAYS 05/23 completed Not Available Not Available Not Available Pyridium 200 mg tablet Take 1 tablet 3 times a day by oral route as needed for 2 days. active Not Available Not Available No t Available hydroxyzi ne pamoate 50 mg capsule TAKE 1 CAPSULE BY MOUTH THREE TIMES DAILY NEEDED 09/30 completed Not Available Not Available Not Available promethaz ine 6.25 mg-codein e 10 mg/5 mL syrup Take 5 mL every 6 hours by oral route as directed . 07/12 completed Not Available Not Available Not Available phentermi ne 37.5 mg tablet TAKE 1 TABLET BY MOUTH ONCE DAILY active Not Available Not Available No t Available omeprazol e 40 mg capsule,d elayed release Take 1 capsule by mouth once daily active Not Available Not Available No t Available amoxicill in 500 mg tablet Take 1 tablet 3 times a day by oral route for 7 days. 10/20 completed Not Available Not Available Not Available prednison e 10 mg tablets in a dose pack Take 1 tab by mouth, 3 times a day for 3 daysTake 1 tab by mouth 2 times a day for 2 daysTake 1 tab by mouth once a day for 1 day 06/16 completed Not Available Not Available Not Available Macrobid 100 mg capsule Take 1 capsule every 12 hours by oral route for 5 days. active Not Available Not Available No t Available carbamaze pine 200 mg tablet Take 1 tablet every 12 hours by oral route with meals for 30 days. active Not Available Not Available No t Available alprazola m 0.5 mg tablet TAKE 1 TABLET BY MOUTH ONCE DAILY NEEDED active Not Available Not Available No t Available ofloxacin 0.3 % ear drops INSTILL 5 DROPS INTO AFFECTED EAR(S) ONCE DAILY FOR 7 DAYS 01/26 completed Not Available Not Available Not Available amoxicill in 875 mg tablet TAKE 1 TABLET BY MOUTH EVERY 12 HOURS UNTIL GONE 07/14 completed Not Available Not Available Not Available cyanocoba ana (vit B-12) 500 mcg tablet Take 1 tablet every day by oral route. 07/14 completed Not Available Not Available Not Available gentamici n 0.3 % eye drops INSTILL 1 to 2 DROPS INTO AFFECTED EYE(S) BY OPHTHALM IC ROUTE EVERY 4 HOURS active Not Available Not Available No t Available trazodone 100 mg tablet TAKE 2 TABLETS BY MOUTH NEEDED AT BEDTIME 04/20 completed Not Available Not Available Not Available OneTouch Ultra Test strips USE 1 STRIP TO CHECK GLUCOSE ONCE DAILY DIRECTED active Not Available Not Available No t Available meclizine 25 mg tablet Take 1 tablet 3 times a day by oral route as needed. active Not Available Not Available No t Available benzonata te 100 mg capsule Take 1 capsule 3 times a day by oral route as needed. 02/07 completed switched to 200 mg. Not Available Not Available Not Available cephalexi n 500 mg capsule Take 1 capsule by mouth twice daily active Not Available Not Available No t Available cyanocoba ana (vit B-12) 1,000 mcg/mL injection solution Inject 1 mL every month by subcutan eous route in the morning. 07/14 completed Not Available Not Available Not Available trazodone 150 mg tablet TAKE 1 TABLET BY MOUTH NEEDED AT BEDTIME FOR 30 DAYS 04/20 completed Not Available Not Available Not Available oseltamiv ir 75 mg capsule Take 1 capsule twice a day by oral route. active Not Available Not Available No t Available prednison e 50 mg tablet 10/13 completed Not Available Not Available Not Available fluticaso ne 500 mcg-salme terol 50 mcg/dose blistr powdr for inhalatio n INHALE 1 DOSE BY MOUTH TWICE DAILY 09/18 completed Not Available Not Available Not Available divalproe x 125 mg tablet,de layed release TAKE 1 TABLET BY MOUTH ONCE DAILY AT BEDTIME 12/27 completed Not Available Not Available Not Available buspirone 7.5 mg tablet Take 1 tablet 3 times a day by oral route as needed. 09/17 completed Not Available Not Available Not Available lisinopri l 20 mg-hydroc hlorothia zide 25 mg tablet TAKE 1 TABLET BY MOUTH ONCE DAILY active Not Available Not Available No t Available etodolac 400 mg tablet Take 1 tablet twice a day by oral route for 30 days. active Not Available Not Available No t Available monteluka st 10 mg tablet TAKE 1 TABLET BY MOUTH ONCE DAILY active Not Available Not Available No t Available hydroxyzi ne HCl 25 mg tablet TAKE 1 TABLET BY MOUTH THREE TIMES DAILY NEEDED 08/19 completed Not Available Not Available Not Available hydrochlo rothiazid e 25 mg tablet TAKE 1 TABLET BY MOUTH ONCE DAILY 07/14 completed Not Available Not Available Not Available Levaquin 500 mg tablet Take 1 tablet every day by oral route. active Not Available Not Available No t Available gabapenti n 100 mg capsule Take 1 capsule 3 times a day by oral route as needed for 30 days. 2023 active Not Available Not Available Not Avai lable ergocalci ferol (vitamin D2) 1,250 mcg (50,000 unit) capsule TAKE 1 CAPSULE BY MOUTH ONCE A WEEK 07/14 completed Not Available Not Available Not Available azelastin e 137 mcg (0.1 %) nasal spray USE 1 SPRAY(S) IN EACH NOSTRIL EVERY 12 HOURS active Not Available Not Available No t Available lisinopri l 10 mg-hydroc hlorothia zide 12.5 mg tablet Take 2 tablets every day by oral route. 10/08 completed Not Available Not Available Not Available methylpre dnisolone 4 mg tablets in a dose pack TAKE BY MOUTH DIRECTED ON INSIDE OF PACKAGE 07/14 completed Not Available Not Available Not Available albuterol sulfate HFA 90 mcg/actua tion aerosol inhaler INHALE 2 PUFFS BY MOUTH EVERY 4 HOURS active Not Available Not Available No t Available ketoconaz ole 2 % topical cream APPLY TO THE AFFECTED AREA(S) BY TOPICAL ROUTE TWICE DAILY x 2 weeks 01/13 completed Not Available Not Available Not Available hydroxyzi ne HCl 10 mg tablet TAKE 1 TABLET BY MOUTH THREE TIMES DAILY NEEDED active Not Available Not Available No t Available cefdinir 300 mg capsule Take 1 capsule twice a day by oral route for 10 days. active Not Available Not Available No t Available losartan 100 mg tablet TAKE 1/2 (ONE-LEONELA F) TABLET BY MOUTH TWICE DAILY active Not Available Not Available No t Available fluoxetin e 20 mg capsule TAKE 3 CAPSULES BY MOUTH ONCE DAILY DIRECTED 07/14 completed Not Available Not Available Not Available fluticaso ne propionat e 50 mcg/actua tion nasal spray,raquel pension USE 2 SPRAY(S) IN EACH NOSTRIL ONCE DAILY 04/20 completed Not Available Not Available Not Available metformin ER 500 mg tablet,ex tended release 24 hr Take 2 tablets twice a day by oral route. active Not Available Not Available No t Available naproxen 500 mg tablet TAKE 1 TABLET BY MOUTH TWICE DAILY NEEDED WITH FOOD 04/20 completed Not Available Not Available Not Available amoxicill in 875 mg-potass ium clavulana te 125 mg tablet TAKE 1 TABLET BY MOUTH TWICE DAILY FOR 7 DAYS 04/20 completed Not Available Not Available Not Available hydroxyzi ne pamoate 25 mg capsule TAKE 1 CAPSULE BY MOUTH THREE TIMES DAILY NEEDED 04/20 completed Not Available Not Available Not Available Bactrim DS 800 mg-160 mg tablet Take 1 tablet every 12 hours by oral route for 7 days. active Not Available Not Available No t Available rosuvasta tin 5 mg tablet TAKE 1 TABLET BY MOUTH ONCE DAILY IN THE EVENING 02/24 completed increase in dose Not Available Not Available Not Available rosuvasta tin 10 mg tablet TAKE 1 TABLET BY MOUTH ONCE DAILY IN THE EVENING active Not Available Not Available No t Available duloxetin e 20 mg capsule,d elayed release active Not Available Not Available Not Available aripipraz ole 2 mg tablet TAKE 1 TABLET BY MOUTH ONCE DAILY AT BEDTIME active Not Available Not Available No t Available Symbicort 160 mcg-4.5 mcg/actua tion HFA aerosol inhaler Inhale 2 puffs twice a day by inhalati on route. 02/07 completed patient did not get, insuranc e would not cover Not Available Not Available Not Available FeroSul 325 mg (65 mg iron) tablet TAKE 1 TABLET BY MOUTH ONCE DAILY 07/14 completed Not Available Not Available Not Available Minastrin 24 Fe 1 mg-20 mcg (24)/75 mg (4) chewable tablet CHEW AND SWALLOW ONE TABLET BY MOUTH ONCE DAILY active Not Available Not Available No t Available Vlad Fe 1.5/30 (28) 1.5 mg-30 mcg (21)/75 mg (7) tablet TAKE 1 TABLET BY MOUTH ONCE DAILY AT THE SAME TIME EACH DAY, TAKE ACTIVE PILLS ONLY active Not Available Not Available No t Available Jardiance 10 mg tablet TAKE 1 TABLET BY MOUTH ONCE DAILY 07/14 completed Not Available Not Available Not Available fluticaso ne 232 mcg-salme terol 14 mcg/actua tion breath activated powdr Inhale 1 puff twice a day by inhalati on route. active Not Available Not Available No t Available OneTouch Ultra Blue Test Strip USE 1 STRIP TO CHECK GLUCOSE THREE TIMES DAILY AND NEEDED 07/14 completed Not Available Not Available Not Available OneTouch Ultra2 Meter USE TO CHECK GLUCOSE TWICE DAILY active Not Available Not Available No t Available OneTouch Delica Plus Lancet 33 gauge USE TO CHECK GLUCOSE ONCE DAILY AND NEEDED active Not Available Not Available No t Available Paxlovid 300 mg (150 mg x 2)-100 mg tablets in a dose pack TK 2 NIRMATRE LVIR TS AND 1 RITONAVI R T TOGETHER PO TWICE DAILY FOR 5 DAYS 04/20 completed Not Available Not Available Not Available Vitals Date Recorded Body height Body mass index (BMI) Body weight Heart rate Oxygen saturation Oxygen saturation in Arterial blood by Pulse oximetry Body temperature Systolic blood pressure Diastolic blood pressure Provider Name and Address Organization Details Last Updated DateTime 4 175.26 cm 39.7 kg/m2 195639. 35 g 108 /min 98 % 98 % 98.1 [degF] 126 mm[Hg] 78 mm[Hg] Harper baez CMA [facility] [employer] 4 14:18:03 Date Recorded Body weight Body mass index (BMI) Body height Body temperature Heart rate Oxygen saturation Oxygen saturation in Arterial blood by Pulse oximetry Systolic blood pressure Diastolic blood pressure Provider Name and Address Organization Details Last Updated DateTime 4 500944. 79 g 38.8 kg/m2 175.26 cm 96.7 [degF] 105 /min 98 % 98 % 104 mm[Hg] 70 mm[Hg] SAMMIE Uribe [place] [employer] [facility] [employer] [facility] 4 16:09:35 Date Recorded Body height Body mass index (BMI) Body weight Body temperature Heart rate Oxygen saturation Oxygen saturation in Arterial blood by Pulse oximetry Systolic blood pressure Diastolic blood pressure Provider Name and Address Organization Details Last Updated DateTime 4 175.26 cm 38.2 kg/m2 482754. 42 g 98 [degF] 103 /min 98 % 98 % 134 mm[Hg] 80 mm[Hg] Kati Pastor RN [place] [employer] 4 14:59:32 Date Recorded Body height Body mass index (BMI) Body weight Body temperature Heart rate Oxygen saturation Oxygen saturation in Arterial blood by Pulse oximetry Systolic blood pressure Diastolic blood pressure Provider Name and Address Organization Details Last Updated DateTime 4 175.26 cm 38.2 kg/m2 127692. 42 g 97.9 [degF] 89 /min 98 % 98 % 132 mm[Hg] 78 mm[Hg] Kati Pastor RN [employer] 4 15:23:27 Social History Question Answer Notes LastModified by Organizat ion Details LastModified Time Tobacco Smoking Status Former Smoker Tricia Jones paula [place] [employer] 07/14/2023 14:11:17 Do You Have An Advance Directive? No [id number] Information not available 09/02/2022 What Is Your Level Of Alcohol Consumption? Occasional [id number] Information not available 09/02/2022 What Is Your Level Of Caffeine Consumption? Occasional [id number] Information not available 09/02/2022 How Much Tobacco Do You Chew? None [id number] Information not available 09/02/2022 In The 14 Days Before Symptom Onset, Have You Had Close Contact With A Laboratory-confi rmed COVID-19 While That Case Was Ill? No Information not available 07/14/2023 In The 14 Days Before Symptom Onset, Have You Had Close Contact With A Person Who Is Under Investigation For COVID-19 While That Person Was Ill? No Information not available 07/14/2023 What Type Of Diet Are You Following? REGULAR [id number] Information not available 09/02/2022 Which Illicit Or Recreational Drugs Have You Used? None Information not available 07/14/2023 Do You Or Have You Ever Used E-cigarettes Or Vape? 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 No Information not available 07/14/2023 What Is The Fluoride Status Of Your Home? Unknown Information not available 07/14/2023 Are There Any Guns Present In Your Home? No Information not available 07/14/2023 Do You Use Insect Repellent Routinely? No Information not available 07/14/2023 Where Do You Live? SingleLevelHouse Information not available 07/14/2023 Do You Have A Medical Power Of Vice President [employer]? No Information not available 07/14/2023 What Was The Date Of Your Most Recent Tobacco Screening? 04/27/2023 Information not available 07/14/2023 What Is Your Relationship Status? [id number] Information not available 09/02/2022 Do You Use Your Seat Belt Or Car Seat Routinely? Yes Information not available 07/14/2023 Do You Have Smoke And Carbon Monoxide Detectors In Your Home? Yes Information not available 07/14/2023 Are You Passively Exposed To Smoke? No Information not available 07/14/2023 Do You Or Have You Ever Used Smokeless Tobacco? Never Used Smokeless Tobacco [id number] Information not available 09/02/2022 Are There Any Smokers In Your House? No Information not available 07/14/2023 How Much Tobacco Do You Smoke? 1 PPD [id number] Information not available 09/02/2022 Do You Feel Stressed (tense, Restless, Nervous, Or Anxious, Or Unable To Sleep At Night)? [id number] Information not available 07/14/2023 Do You Use Any Illicit Or Recreational Drugs? No Information not available 07/14/2023 Do You Use Sunscreen Routinely? No Information not available 07/14/2023 Have You Recently Traveled Abroad? No Information not available 07/14/2023 Do You Have Any Dietary Restrictions? No Information not available 07/14/2023 Do You Or Have You Ever Used Any Other Forms Of Tobacco Or Nicotine? No Information not available 07/14/2023 Sex: Unknown Functional Status Question Answer Note LastModified by Organizat ion Details LastModified Time What is your exercise level? None [id number] Information not available 09/02/2022 Mental Status None recorded. Family History Relationship Description Onset Age of this Age Resolved Age Notes LastModified by Organization Details LastModified Time Father Pulmonary embolism [email or web address] Not available 15:04:08 Mother Essential hypertension [email or web address] Not available 06/21/2024 15:04:08 Mother Depressive disorder [id number] Not available 09/02/2022 03:04:42 Mother Diabetes mellitus [id number] Not available 09/02/2022 03:04:42 Mother Kidney disease [id number] Not available 09/02/2022 03:04:42 Maternal Grandfather Congestive heart failure frivastorres Not available 15:04:08 Maternal Grandfather Family history of stroke frivastorres Not available 15:04:08 Maternal Grandmother Family history of malignant neoplasm frivastorres Not available 15:04:08 Medical History Condition Response NERVE DISEASE N BLINDNESS N RHEUMATIC FEVER N KIDNEY STONES N BLADDER PROBLEMS N MRSA N CARPAL TUNNEL SYNDROME N OTHER # 1 N POLIO N LUNG DISEASE/DISORDER Y HISTORY OF DRUG ABUSE N COPD N RADIATION / CHEMOTHERAPY N Other # 2 N SPORTS INJURY N ANKLE PAIN N BLOOD DISEASES N SURGERY N EAR OR HEARING PROBLEMS N MUMPS N SCHIZOPHRENIA N SHINGLES Y BOWEL PROBLEMS N SHOULDER PAIN N DEPRESSION (INCLUDING POST ) N STROKE/TIA N ULCERS N KNEE PAIN N BENIGN PROSTATIC HYPERPLASIA N MEASLES N MYOCARDIAL INFARCTION N OBESITY N GERD/NAUSEA N ANEURYSM N URINARY/BLADDER/KIDNEY PROBLEMS N CORONARY ARTERY DISEASE (CAD) N INPATIENT PSYCH CARE N ADDICTION CONCERNS N ENDOMETRIOSIS N Impotence N USE OF BLOOD THINNERS N SKIN PROBLEMS Y EMPHYSEMA N GASTROINTESTINAL DISORDER N PERIPHERAL VASCULAR DISEASE N MUSCLE,JOINT OR BONE PROBLEMS N DVT N STOMACH ULCERS N GASTROINTESTINAL BLEEDING N BLOOD CLOTS N ASTHMA Y CATARACTS N USE OF NSAIDS N CONCUSSION OR SPINAL TRAUMA N ERECTILE DYSFUNCTION N VARICOSITIES N GI PROBLEMS N Low Testosterone N NEUROPATHY N INFERTILITY N AIDS/HIV N FRACTURES N LIVER DISEASE N MALE HYPOGONADISM N ELBOW PAIN N HYPERTENSION N Deficiency Y TOURETTE'S N ANXIETY DISORDER N Metal allergy N BLOOD TRANSFUSION N ANEMIA/BLOOD DISORDER N CHRONIC EAR INFECTIONS N BIPOLAR DISORDER N BRONCHITIS N OSTEOARTHRITIS N TUBERCULOSIS N GLAUCOMA N FOOT PROBLEM N HEART VALVE DISORDERS N DIVERTICULITIS N CHICKENPOX N SLEEP APNEA N SOFT TISSUE INJURY N ALLERGIES/HAYFEVER N INFECTIOUS DISEASE N HEART ARRHYTHMIA N PROSTATE N INSOMNIA N RHEUMATOID ARTHRITIS N HIGH CHOLESTEROL / HYPERLIPIDEMIA N EYE PROBLEMS N NEUROLOGICAL PROBLEMS N EDEMA N CHRONIC PAIN SYNDROME N HYPOTHYROIDISM N CAROTID BLOCKAGE N CONSTIPATION N BACK / NECK PROBLEMS N HAVE YOU BEEN HOSPITALIZED OR SEEN IN [facility] ER IN THE PAST YEAR ? N ATHEROSCLEROSIS N BURSITIS N BREAST PROBLEMS N HERNIATED DISC N DIALYSIS N ECZEMA N FIBROMYALGIA N OSTEOPOROSIS N ARTHRITIS N NO SIGNIFICANT PAST MEDICAL HISTORY N PERIPHERAL NEUROPATHY N APPENDICITIS N DIABETES, TYPE Y BAD TEETH N ENT N HEARTBURN / REFLUX N AUTISM SPECTRUM DISORDER (ASD) N HEPATITIS / LIVER DISEASE N PULMONARY DISEASE N GOUT N SLEEP DISORDER N ALZHEIMER'S DISEASE N Brain Problems N HERPES N DEMENTIA N HEADACHES/MIGRAINES N SEIZURES/EPILEPSY N VASCULAR DISEASE N PACEMAKER N Blood Disorder N HIP PAIN N DIZZINESS N HEAD TRAUMA OR INJURY N HEART DISEASE/HEART PROBLEMS N KIDNEY DISEASE N MULTIPLE SCLEROSIS N CARDIAC ARRHYTHMIA N CANCER: SPECIFY N ANESTHESIA COMPLICATIONS N ATRIAL FIBRILLATION N Gall Stones N PULMONARY EMBOLISM N AUTOIMMUNE DISEASE N Gynecological HistoryNo gynecological history recorded. Obstetrics History GPAL:G 0 P 0 0 0 0 Immunizations Vaccine Type Date Status Note Provider Nam e and Address Organization Details Recorded Time COVID-19, mRNA, LNP-S, PF, 100 mcg/0.5mL dose or 50 mcg/0.25mL dose 04/12/2021 completed Harper Sinclair CMA null, [place] [employer] 07/14/2023 14:24:51 COVID-19, mRNA, LNP-S, PF, 100 mcg/0.5mL dose or 50 mcg/0.25mL dose 03/15/2021 completed Harper Sinclair CMA null, [place] - [facility] [employer] 07/14/2023 14:24:51 Past Encounters Encounter ID Performer Location Encounter Start Date Encounter Closed Date Diagnosis/Indication Diagnosis SNOMED-CT Code Diagnosis ICD10 Code Diagnosis Note [id number] [facility] [place] [address] [facility], [address] [address] [place] [address] 09/17/2020 00:00:00 09/17/2020 20:18:58 [id number] [facility] [place] [address] [facility] 15 [place] [address] 11/18/2020 00:00:00 11/18/2020 17:31:22 [id number] [facility] [place] [address] [facility] 15 [place] [address] 12/27/2020 00:00:00 12/27/2020 14:10:52 [id number] [facility] [place] [address] [address] 02/18/2021 00:00:00 02/18/2021 17:35:57 [id number] [facility] [address] [address] 03/06/2021 00:00:00 03/06/2021 16:43:22 [id number] [facility] [place] [address] [place] [address] 04/15/2021 00:00:00 04/15/2021 13:16:54 [id number] [facility] [address] [address] 04/29/2021 00:00:00 04/29/2021 15:05:46 [id number] [facility] Ortho [address] [address] 05/06/2021 00:00:00 05/06/2021 11:12:38 [id number] [facility] [place] [address] [facility] [address] [facility] [place] [address] 06/16/2021 00:00:00 06/16/2021 16:25:40 [id number] [facility] [address] [address] 08/19/2021 00:00:00 08/19/2021 20:55:23 [id number] [facility] [place] [address] [place] [address] 09/30/2021 00:00:00 09/30/2021 15:26:52 [id number] [facility] [place] [address] [place] [address] [place] [address] 01/13/2022 00:00:00 01/13/2022 15:42:28 [id number] [facility] [place] [address] [address] [place] [address] 04/14/2022 00:00:00 04/14/2022 14:59:46 [id number] [facility] [place] [address] [address] 05/22/2022 00:00:00 05/22/2022 14:35:53 [id number] [facility] [place] [address] [address] 07/14/2022 00:00:00 07/14/2022 15:41:41 [id number] [facility] [address], [address] [address] 11/14/2020 00:00:00 11/14/2020 14:53:04 [id number] [facility] [address], [address] [address] 12/10/2020 00:00:00 12/10/2020 15:59:54 [id number] [facility] [address] [place] [address] [place], [address] [address] 01/09/2021 00:00:00 01/09/2021 16:20:34 [id number] [facility] [address] [place] [address] [place], [address] [address] 04/09/2021 00:00:00 04/09/2021 11:18:14 [id number] [facility] [address] [place] [address] [place], [address] [address] 08/05/2021 00:00:00 08/05/2021 17:05:01 [id number] [facility] [address] [place] [address] [place], [address] [address] 11/06/2021 00:00:00 11/06/2021 16:17:50 [id number] [facility] [address] [place] [address] [address] 02/05/2022 00:00:00 02/05/2022 14:28:19 [id number] [facility] [address] [place] [address] [place], [address] [address] 05/20/2022 00:00:00 05/20/2022 14:42:43 [id number] [facility] [address] [place] [address] [place], [address] [address] 06/17/2022 00:00:00 06/17/2022 16:15:43 [id number] [facility] [address] [place] [address] [address] 07/22/2022 00:00:00 07/22/2022 15:52:18 [id number] [facility] [address] [place] [address] [address] 08/19/2022 00:00:00 08/19/2022 16:58:18 [id number] Rosalee Torres NP [facility] [address] [address] 10/14/2022 14:56:09 10/14/2022 16:28:02 [id number] DELFINO Ocampo [facility] [address], [address] [address] 10/20/2022 13:57:57 10/20/2022 14:25:59 Vitamin B12 deficiency (non anemic) 50764827 E53.8 on monthly injections Diabetes mellitus 397282 09 E11.9 on metformin, we discussed adding victoza/tr ulicity to help with cravings/w eight loss, she declines at this time but will let me know if she changes her mind DM eye exam recommende d- has referral Benign ess ential hypertension 9681897 I10 on losartan and HCTZ Hyperlipidemia 06784074 E78.5 on rosuvastat in Vitamin D deficiency 347 56671 E55.9 on supplement Iron deficiency 95999030 E61.1 on supplement Sleep apnea [id number] G47 .30 get home sleep study- strongly encouraged her to get this reschedule d due to her fatigue and snoringdis cussed risks of untreated sleep apnea, including heart problems, lung problems, and Acne 87147859 L70.9 now off the doxycyline , acne remains resolved Obesity 069148924 E66.9 recommend healthy, well balanced mealsfocus on lean meats, fresh vegetables , fresh fruits, whole grainsredu ce fast/proce ssed foods or eating out to no more than 1-2 times per weekaim to get 30 min of exercise most days of the week- walking is a great choice Nausea 604614319 R11.0 using zofran prn (approx once a week) when sinus drainage gets severe and causes nausea Anxiety 26084251 F41.9 now [facility] - [facility] [place] flu[facility] from themcal office if any change in mood or behaviorsh e declines counseling referral Chronic sinusitis 751484 00 J32.9 on flonase, claritin, singulairi nsurance denied the CT of her sinuses, referred her back to ENT- Dr. Katz Fatigue 48606986 R53.83 get sleep study as above Multiple joint pain 3567 8005 M25.50 now [facility] were negative, now only following up prn [facility] th examination 810257828 Z00.01 Depression screening 171 910600 Z13.31 [id number] Rosalee Torres NP [facility] [address] [facility] [place] [address] 01/12/2023 14:16:57 01/12/2023 16:06:17 [id number] DELFINO Ocampo S_G Internal Med [address] [facility] [place] [address] 01/19/2023 14:37:54 01/19/2023 15:05:25 Vitamin B12 deficiency (non anemic) 40821073 E53.8 on monthly injections Stressed the importance of her coming in monthly for these Diabetes mellitus 411646 09 E11.9 on metformin, we discussed adding victoza/tr ulicity to help with cravings/w eight loss, she declines at this time but will let me know if she changes her mind DM eye exam recommende d- has referral Benign ess ential hypertension 7762752 I10 on losartan and HCTZ Hyperlipidemia 89058988 E78.5 on rosuvastat in Vitamin D deficiency 347 33733 E55.9 on supplement Iron deficiency 38266244 E61.1 on supplement Sleep apnea 53812370 G47 .30 get home sleep study- strongly encouraged her to get this reschedule d due to her fatigue and snoringdis cussed risks of untreated sleep apnea, including heart problems, lung problems, and Acne 79103211 L70.9 now off the doxycyline , acne remains resolved Obesity 012398206 E66.9 recommend healthy, well balanced mealsfocus on lean meats, fresh vegetables , fresh fruits, whole grainsredu ce fast/proce ssed foods or eating out to no more than 1-2 times per weekaim to get 30 min of exercise most days of the week- walking is a great choice Nausea 672497900 R11.0 using zofran prn (approx once a week) when sinus drainage gets severe and causes nausea Anxiety 08467339 F41.9 now follows psychiatry - [facility]e at [place] fluoxetine from themcall office if any change in mood or behaviorsh e declines counseling referral Chronic sinusitis 357870 00 J32.9 on flonase, claritin, singulair, astelinfol tonio ENT- Dr. Hollingsworth try and see if we can get her CT approved Fatigue 56165064 R53.83 get sleep study as above Multiple joint pain 3567 8005 M25.50 now [facility] were negative, now only following up prn Renewal of prescription 395098365 Z76.0 Viral syndrome 365153021 B34.9 She will take home COVID testing calls back that is positive Recommend she start OTC cold medssuppor tive care Call office if no better in a week [id number] Rosalee Torres NP [address] [place], [address] [place] [address] 04/06/2023 13:59:42 04/06/2023 14:31:36 [id number] DELFINO Ocampo [facility] Internal Med [facility] [address] [place] [address] 04/27/2023 13:51:19 04/27/2023 14:28:32 Vitamin B12 deficiency (non anemic) 87635588 E53.8 on monthly injections Stressed the importance of her coming in monthly for these Diabetes mellitus 006855 09 E11.9 increase metformin, we discussed adding victoza/tr ulicity to help with cravings/w eight loss, she declines at this time but will let me know if she changes her mindadd Jardiance- she is aware of side effects, risks, and benefitsSh e knows to call the office if any signs or symptoms of UTI/groin/ vaginal infection DM eye exam recommende d- has referral Benign ess ential hypertension 1307899 I10 on losartan and HCTZWill increase losartan to BID (she prefers BID dosing) Hyperlipidemia 44919759 E78.5 on rosuvastat in Vitamin D deficiency 347 16191 E55.9 on supplement Iron deficiency 86422369 E61.1 on supplement Sleep apnea 56263369 G47 .30 get home sleep study- strongly encouraged her to get this reschedule d due to her fatigue and snoring- has been ordered multiple times- she has not done thisdiscus sed risks of untreated sleep apnea, including heart problems, lung problems, and Acne 44609340 L70.9 now off the doxycyline , acne remains resolved Obesity 823633121 E66.9 recommend healthy, well balanced mealsfocus on lean meats, fresh vegetables , fresh fruits, whole grainsredu ce fast/proce ssed foods or eating out to no more than 1-2 times per weekaim to get 30 min of exercise most days of the week- walking is a great choice Nausea 262410782 R11.0 using zofran prn (approx once a week) when sinus drainage gets severe and causes nausea Anxiety 82908611 F41.9 now [facility]ry - [facility] fluoxetine from themcall office if any change in mood or behaviorsh e declines counseling referral Chronic sinusitis 397068 00 J32.9 on flonase, claritin, singulair, astelinfol tonio ENT- Dr. Hollingsworth try and see if we can get her CT approved Fatigue 85198040 R53.83 get sleep study as above Multiple joint pain 3567 8005 M25.50 now following [facility]um labs were negative, now only following up prn Allergic rhinitis 711502 04 J30.9 On Astelin from [facility] t with caustic strength inspector Serous otitis media 8032 7007 H65.93 Start Medrol DosepakCon tinue nose spray Renewal of prescription 195181283 Z76.0 [id number] Rosalee Torres NP [facility] [address] [address] 07/08/2023 13:50:38 07/08/2023 14:25:28 [id number] Jaxson Barrera MD [facility] Internal Med [address] [place] [address] 07/14/2023 14:09:50 07/14/2023 15:19:56 Diabetes mellitus 02614812 E11.9 under control Hyperlipidemia 41785753 E78.5 stable Vitamin D deficiency 347 54983 E55.9 to take otc Benign ess ential hypertension 1398518 I10 stable Anxiety state 525425030 F41.1 to see psych Allergic rhinitis 858069 04 J30.9 add Flonase Steatosis of liver 1007 K76.0 Asthma 420055260 J45.90 9 under control Deviated nasal septum 12 0176617 J34.2 seen ENT [id number] Rosalee Torres NP [facility] [address] [address] 09/30/2023 14:05:28 09/30/2023 17:26:03 [id number] Rosalee Torres NP [facility] [address] [address] 01/03/2024 12:26:17 01/03/2024 12:54:37 [id number] Jaxson Barrera MD [facility] Internal Med [address] [place] [address] 01/27/2024 16:02:56 01/27/2024 16:41:31 Diabetes mellitus 95965488 E11.9 under control Hyperlipidemia 71327609 E78.5 stable Vitamin D deficiency 347 01102 E55.9 to take otc Benign ess ential hypertension 4034481 I10 under control Anxiety state 417440012 F41.1 seeing psych Allergic rhinitis 260107 04 J30.9 meds help Steatosis of liver 1007 K76.0 labs Asthma 274379087 J45.90 9 under control Deviated nasal septum 12 2245755 J34.2 seen ENT Paronychia of toe 638024 002 L03.039 Eye symptom 540568294 H5 7.9 seen ophthalmol emilee, waiting for neurology Long-term drug therapy 344248477 Z79.863 [id number] Rosalee Torres NP [facility] [address] [address] 04/03/2024 12:22:04 04/03/2024 14:37:35 [id number] DELFINO Alexis [facility] Primary Care [facility] [address] [facility] [facility] [place] [address] 04/20/2024 14:37:02 04/20/2024 16:04:53 Left hemiparesis 754000043 G81.90 left eye droop, pain and left arm numbness worsening since September. Pain of le ft knee joint 4554851890 73576 M25.562 Fall down steps in January, was not evaluated- --increase d pain and unable to kneel on left knee, knee gives out periodical ly and she falls.Has been treating with Ibuprofen, ice and elevation which provides some relief. Trigeminal neuralgia 316 79466 G50.0 Will trial treatment as listed below. Patient will contact office in [facility] one week to update on symptoms. Hyperlipidemia 01306940 E78.5 Will refill meds as listed below. Gastroesop hageal reflux disease without esophagitis 984537152 K21.9 Well controlled on daily medication s, will refill. Anxiety 38678817 F41.9 JACQUELIN-7 ().Wi ll continue Fluoxetine as prescribed by Rosalee Torres and add Alprazolam 0.5mg daily as needed. Had detailed discussion with patient that Alprazolam is a controlled substance, has risk for addiction and should not be taken more than prescribed for any reason. Discussed controlled substance policy to include routine follow ups and random UDS. [place] collected in office.see n in office today, will follow up in 3 months, sooner if needed.Den ies SI/HI. Long-term drug therapy 867604574 Z79.891 Acute sinusitis 16872838 J01.90 Will treat as listed below. Patient will contact office if symptoms do not improve after completion of antibiotic .Discussed antibiotic therapy-ta ke medication with food and drink plenty of water to prevent stomach upset. Nausea 344233332 R11.0 associated with pain and headaches, will refill Zofran as needed. Fatigue 22679854 R53.83 Candidiasis of vagina 72 951787 B37.31 Yeast infection with any use of antibiotic , Diflucan prescribed as listed below if needed following use of Azithromyc in. Body mass index 30+ - obesity 539101428 Z68.38 BMI: 38.2Discus sed healthy diet and routine exercise. [id number] Rosalee Torres NP [facility] [address] [address] 05/01/2024 13:55:26 05/01/2024 14:26:42 [id number] DELFINO Alexis [facility] Primary Care [facility] [address] [place] [address] 06/21/2024 15:03:26 06/21/2024 16:07:43 Left hemiparesis 606927218 G81.90 Family his tory of Autoimmune disease 777141881 Z83.2 Anxiety 80211755 F41.9 JACQUELIN-7 ().[place] [employer]NIC[employer] verified.U DS collected in office.see n in office today, will follow up in 3 months, sooner if needed.Den ies SI/HI. Hyperlipidemia 62753789 E78.5 Will refill meds as listed below. Type 2 kalpesh betes mellitus without complication 333473893 E11.9 Herpes zoster 4368802 B0 2.9 [id number] DELFINO Alexis [facility] Primary Care Maribell mir [address] [place] [address] 06/22/2024 11:32:40 06/22/2024 17:02:41 Health Concerns Section Related Observation LastModified by Organization Detai ls LastModified Time None Recorded Concern Status LastModified by Organization Details LastModified Time None Recorded Advance Directives Directive N: Payers Encounter Date Sequence Insurance Name Policy Number Policy Murguia Covered Member ID Murguia Member ID Guarantor Name 07/14/2023 1 [employer] [place] [id number] Radha E Baiter [id number] Radha E Lisa 01/27/2024 1 [employer] [place] [id number] Radha E Baiter [id number] Radha E Lisa 04/20/2024 1 [employer] [place] [id number] Radha E Baiter [id number] Radha E Lisa 06/21/2024 1 [employer] [place] [id number] Radha E Baiter [id number] Radha E Lisa 06/22/2024 1 [employer] [place] [id number] Radha E Baiter [id number] Radha E Lisa Notes Date Note Type Note Provider Name and Address Organization Details Recorded Time 07/14/2023 text/html New pt, needs ne w rx for all meds. DM- under control, accu checks are good, Ac was 6.8No hypoglycemiaNo neuropathyGets eye examMeds metformin ER 500 MG BID , Jardiance given side effects HTN- meds help Hyperlipidemia- under control Asthma- using prn Obesity- has been watching diet All rhinitis- on Azelastine NS, montlukast 10 mg qd, gets vomiting and takes zofran prn B12 def, on oral meds, reviwed the labs, always has nl levels, keep taking oral Vit D def- on rx, no need, labs nl, take 400 u otc H/o anemia- on iron, last labs good, may stop and monitor labs Anxiety/OCD- high dose fluoxetine helps, seeing psych LFT high, fatty liver Sleep apnea Jaxson Barrera MD [address], [place], [address], [employer] 07/14/2023 15:03:04 01/27/2024 text/html Pt is here today for her routine follow upHas a list of things to discussLeft eye droopy, worse if shes upset or has a headacheHorrible headaches since Aug.Left hand sometimes weak. DM- under control, accu checks avg is 170. Ac was 6.8No hypoglycemia,No neuropathyGets eye exam- 08/28Meds Metformin ER 500 MG BID , Jardiance given side effects HTN- meds helpMeds- Losartan 100mg qd Hyperlipidemia- under control, under controlMeds- Rosuvastatin 10mg daily Asthma- Uses inhaler daily and nebulizer as needed Obesity- has been watching diet, Lost 6lbs All rhinitis- on Azelastine NS, montlukast 10 mg qd, gets vomiting and takes zofran prn Vit D def- treated in the past, need labs H/o anemia- on iron, last labs good, may stop and monitor labs Anxiety/OCD- high dose fluoxetine helps, seeing psych, LFT high, fatty liver, watching diet Insomnia- trazodone not helping , gets dry mouth ( gets from psych ) Left eye droopy off and since 08/28, seeen in the ER, waiting for neurology visit Right big toe infection after dropping a stick, pain, some discharge Jaxson Barrera MD [address], [place], [address], [employer] 01/27/2024 16:42:54 04/20/2024 text/html Patient is a 39 year old female that presents to the office to establish care. Patient was seeing Dr. Barrera. Patient reports she is switching PCPs because she did not feel like Dr. Barrera listened and did not feel like he cared about her health. Patient has left eye droop and pain that starts under her left eye, travels straight back to her left ear and down her neck. Symptoms started in September, patient went to -was diagnosed with Mastoiditis and transferred immediately to [facility] [facility]. Mastoiditis was ruled out by the ER, she received Toradol and steroid injection, CT and was sent home with a diagnosis of tonsil stone and ear infection. Patient was instructed to follow up with Neurology-is scheduled May 12-the earliest she could get in. Patient continues to have episodes of sharp pain/shock like feeling under left eye that shoots back to ear and radiates down her neck. Patient reports sometimes the associated headaches are so painful she has blurry vision and vomiting. Patient denies balance difficulties. Patient denies history of migraines.Patient reports all around the start of these symptoms she also had shingles on the left side of her neck. Patient has had a total of 4 shingles outbreaks this year all on the left side of her neck.Patient followed up with eye doctor in October and was told these symptoms are not associated with her eyes.Patient previously saw endocrinology, Dr. Dhaliwal, however she has since moved out of [facility] and pateint has not established care with a new water mangle tender. Dr. Dhaliwal had diagnosed patient with trigeminal neuralgia in 2021, was taking Carbamazepine but it did not help with symptoms so she stopped taking it. Patient is currently seeing psych however it is not going well as they have very different opinions. Patient reports this year has been hell with her . She reports that psych (Rosalee Torres) only wants to take her off of her Prozac and she does not want to because it works well for her and she knows how quickly she will spiral out of hand if she stops taking it. Patient did go through a period where she was trialed on numerous other medications all of which made her sick. Patient also reports that Rosalee discontinued her Alprazolam because she did not find it necessary. Since being off of her Alprazolam she has had increased anxiety and periodic mood changes. Denies SI/HI. Patient reports left knee pain since January after falling down some steps and landing on it. Patient was not evaluated after fall because she fell while trying to get her grandfather to the hospital. Knee has become more painful, especially with extension. Knee will periodically give out causing patient to fall. Sinus infection for the last two weeks, has taken multiple OTC medications without relief of symptoms. Denies chest pain and shortness of breath, vomiting and diarrhea. Denies fevers, body aches and chills. Took home Covid test prior to appointment. [id number] am-age [id number] DELFINO Alexis [address] [facility] [address], [place], [address], [employer] 04/20/2024 23:41:42 06/21/2024 text/html Patient is a 39 year old female that presents to the office for follow up. Patient reports she went to the neurologist, did not have a good experience and is likely not going back to him. Patient reports he attempted to diagnose her with MS without reviewing her medical records or evaluating her in office. Patient states he said I will increase the Gabapentin to 3 times a day and you'll be fine . Patient is currently having another shingles outbreak on the right side of her neck, started taking Valacyclovir when the pain started. Patient reports pain in fairly well controlled at this time. DELFINO Alexis [address], [facility] [address], [place], [address], [employer] 07/02/2024 23:14:01 OBGyn Episode No OBEpisode recorded.
== END 2024-09-13 13:07 | disposition home or self-care (01) ==
PROVIDERS: Visit Provider Nurse Practitioner Family
DX: G81.94 Hemiplegia, unspecified affecting left nondominant side (principal)
CPT/HCPCS: 95886; 95909